=== PATIENT | male | born 1990 | race Caucasian/White ===

== ENCOUNTER 2017-06-02 12:44 | Emergency (ER) | payer MEDICAID ==
[~2017-06-02] VITALS: Ht 188 cm; Wt 72.6 kg
[2017-06-02 13:00] VITALS: BP 118/77
[2017-06-02 13:46] LABS: Basophils # (auto) 0 uL; Basophils % (auto) 0.5 % (0.0-2.0); Eosinophils # (auto) 0.2 uL; Eosinophils % (auto) 1.8 % (0.0-7.0); Hematocrit 43.4 % (41.0-53.0); Hemoglobin 14.6 g/dL (13.5-17.5); Lymphocytes # (auto) 1.8 uL; Lymphocytes % (auto) 18.8 % (10.0-50.0); Mean Corpuscular Hemoglobin 30.3 pg (28.0-32.0); Mean Corpuscular Hgb Conc. 33.6 g/dL (32.0-36.0); Mean Corpuscular Volume 90.2 fL (80.0-100.0); Mean Platelet Volume 7.3 fL (6.9-10.8); Monocytes # (auto) 0.9 uL; Monocytes % (auto) 10.1 % (0.0-12.0); Neutrophils # (auto) 6.4 uL; Neutrophils % (auto) 68.8 % (37.0-80.0); Nucleated Red Blood Cells % 0.1 %; Platelet Count (auto) 289 10^3/uL (140-450); Red Cell Distribution Width 13.9 % (11.8-14.3); White Blood Cell 9.4 10^3/uL (4.4-10.8)
[2017-06-02 13:56] LABS: Acetaminophen < 2.0 ug/mL (10-30); Salicylate < 1.7 mg/dL (2.8-20.0)
[2017-06-02 13:57] LABS: Albumin 4.5 g/dL (3.4-5.0); Alkaline Phosphatase 66 U/L (45-117); Anion Gap 6 (5-15); Aspartate Aminotransferase 19 U/L (15-37); BUN/Creatinine Ratio 12.8; Bilirubin, Total 2.1 mg/dL (0.2-1.0); Blood Urea Nitrogen 15 mg/dL (7-18); Calcium 9.1 mg/dL (8.5-10.1); Carbon Dioxide 30 mmol/L (21-32); Chloride 101 mmol/L (98-107); GFR African American 96 mL/min; GFR Non-African American 79 mL/min; Glucose 88 mg/dL (74-106); Potassium 3.9 mmol/L (3.5-5.1); Sodium 137 mmol/L (136-145); Total Protein 8.2 g/dL (6.4-8.2)
== END 2017-06-02 20:30 | disposition left against medical advice (07) ==
LOC: EDBD 12:44 → EDUNIT# 12:44 → ER 12:44
DX: F15.90 Other stimulant use, unspecified, uncomplicated (principal); Z53.21 Procedure and treatment not carried out due to patient leaving prior to being seen by health care provider
CPT/HCPCS: 36415; 80053; 80320; 80329; 85025

== ENCOUNTER 2018-05-04 22:14 | Emergency (ER) | payer MEDICAID, OTHER ==
[~2018-05-04] VITALS: Ht 188 cm; Wt 77.1 kg
[2018-05-04 22:53] LABS: Basophils # (auto) 0.1 uL; Basophils % (auto) 0.6 % (0.0-2.0); Eosinophils # (auto) 0.4 uL; Eosinophils % (auto) 4.2 % (0.0-7.0); Hematocrit 40.5 % (41.0-53.0); Hemoglobin 13.6 g/dL (13.5-17.5); Lymphocytes # (auto) 2.5 uL; Lymphocytes % (auto) 24.3 % (10.0-50.0); Mean Corpuscular Hemoglobin 31.7 pg (28.0-32.0); Mean Corpuscular Hgb Conc. 33.5 g/dL (32.0-36.0); Mean Corpuscular Volume 94.7 fL (80.0-100.0); Monocytes # (auto) 0.9 uL; Monocytes % (auto) 8.8 % (0.0-12.0); Neutrophils # (auto) 6.5 uL; Neutrophils % (auto) 62.1 % (37.0-80.0); Nucleated Red Blood Cells % 0.1 %; Platelet Count (auto) 281 10^3/uL (140-450); Red Blood Cells 4.28 10^6/uL (4.5-5.90); Red Cell Distribution Width 13.6 % (11.8-14.3); White Blood Cell 10.5 10^3/uL (4.4-10.8)
[2018-05-04 23:14] LABS: Alanine Aminotransferase 25 U/L (16-61); Albumin 3.6 g/dL (3.4-5.0); Anion Gap 6 (5-15); Aspartate Aminotransferase 17 U/L (15-37); BUN/Creatinine Ratio 17.6; Blood Urea Nitrogen 18 mg/dL (7-18); Calcium 8.1 mg/dL (8.5-10.1); Carbon Dioxide 28 mmol/L (21-32); Chloride 106 mmol/L (98-107); GFR African American 112 mL/min; GFR Non-African American 92 mL/min; Glucose 100 mg/dL (74-106); Potassium 4.2 mmol/L (3.5-5.1); Sodium 140 mmol/L (136-145)
[2018-05-04 23:18] LABS: Alkaline Phosphatase 69 U/L (45-117); Bilirubin, Total 0.3 mg/dL (0.2-1.0); Total Protein 6.7 g/dL (6.4-8.2)
[2018-05-05 00:12] LABS: Urine Bacteria NONE SEEN /hpf (None Seen); Urine Blood Negative /uL (Negative); Urine Specific Gravity 1.009 (1.001-1.035); Urine WBC 2 /hpf (0 - 3)
[2018-05-05] MEDS ORDERED: IBUPROFEN 800 MG TAB PO ONE (00:15)
[2018-05-05 01:21] VITALS: BP 97/56
== END 2018-05-05 03:11 | disposition home or self-care (01) ==
LOC: EDBD 22:14 → EEVIPCON 22:23 → ER 22:23
DX: R07.89 Other chest pain (principal); F17.210 Nicotine dependence, cigarettes, uncomplicated; F12.90 Cannabis use, unspecified, uncomplicated
CPT/HCPCS: 36415; 71045; 80053; 81001; 83880; 84484; 85025; 93005; 94761

== ENCOUNTER 2020-07-28 23:51 | Emergency (ER) | payer MEDICAID, OTHER ==
[~2020-07-28] VITALS: Ht 154.9 cm; Wt 81.6 kg
[2020-07-29 00:22] VITALS: BP 114/77
[2020-07-29] MEDS ORDERED: IBUPROFEN 800 MG TAB PO ONE (02:00)
== END 2020-07-29 03:00 | disposition home or self-care (01) ==
LOC: EDBD 23:51 → ER 23:51
DX: S29.012A Strain of muscle and tendon of back wall of thorax, initial encounter (principal); G89.29 Other chronic pain; X58.XXXA Exposure to other specified factors, initial encounter; Y93.89 Activity, other specified; Y92.89 Other specified places as the place of occurrence of the external cause; Y99.8 Other external cause status
CPT/HCPCS: 72070

== ENCOUNTER 2020-08-19 17:00 | Emergency (ER) | payer MEDICAID ==
[~2020-08-19] VITALS: Ht 188 cm; Wt 74.8 kg
[2020-08-19 17:04] VITALS: BP 119/76
[2020-08-19] MEDS ORDERED: ACETAMINOPHEN 325 MG TAB PO ONE (20:00)
== END 2020-08-19 20:45 | disposition home or self-care (01) ==
LOC: EDBD 17:00 → ER 17:00 → EDUNIT# 17:00 → ER 20:45
DX: R53.1 Weakness (principal); F12.10 Cannabis abuse, uncomplicated

== ENCOUNTER 2020-09-06 11:07 | Inpatient (IN) | payer MEDICAID, OTHER ==
[~2020-09-06] VITALS: Ht 180.3 cm; Wt 73.0 kg
[2020-09-06] VITALS (7 sets, daily range): BP systolic 89–156; BP diastolic 44–67
[2020-09-06] MEDS ORDERED: NALOXONE HCL 1MG/ML 2ML SYRINGE ONE ×2 (11:10→11:13)
[2020-09-06] MEDS: MIDAZOLAM DRIP 50 mg/50mL 50 ML IV SCH (11:11)
[2020-09-06] MEDS ORDERED: NALOXONE HCL 1MG/ML 2ML SYRINGE IV ONE (11:30)
[2020-09-06] MEDS ORDERED: SODIUM CHLORIDE 0.9% 1,000 ML IV ONE (11:30)
[2020-09-06] MEDS ORDERED: ETOMIDATE (2MG/ML) 20ML VIAL IV ONE (11:30)
[2020-09-06] MEDS ORDERED: SUCCINYLCHOLINE CHLORIDE 20 MG/ML 10ML VIAL IV ONE (11:30)
[2020-09-06] MEDS ORDERED: NOREPINEPHRINE 8 MG/250ML KIT 250 ML IV ONE (11:59)
[2020-09-06] MEDS: NOREPINEPHRINE 8 MG/250ML KIT 250 ML IV SCH (12:00)
[2020-09-06 12:14] LABS: Basophils # (auto) 0 10 ^3/uL (0-0.2); Basophils % (auto) 0.6 % (0.0-2.0); Eosinophils # (auto) 0.1 10 ^3/uL (0-0.8); Eosinophils % (auto) 1.6 % (0.0-7.0); Hematocrit 39.8 % (41.0-53.0); Hemoglobin 13.4 g/dL (13.5-17.5); Lymphocytes # (auto) 2.8 10 ^3/uL (0.4-5.4); Lymphocytes % (auto) 35.2 % (10.0-50.0); Mean Corpuscular Hemoglobin 32.2 pg (28.0-32.0); Mean Corpuscular Hgb Conc. 33.7 g/dL (32.0-36.0); Mean Corpuscular Volume 95.5 fL (80.0-100.0); Monocytes # (auto) 0.4 10 ^3/uL (0-1.3); Monocytes % (auto) 5.6 % (0.0-12.0); Neutrophils # (auto) 4.5 10 ^3/uL (1.6-8.6); Nucleated Red Blood Cells % 0.1 %; Platelet Count (auto) 310 10^3/uL (140-450); Red Blood Cells 4.17 10^6/uL (4.5-5.90); White Blood Cell 7.8 10^3/uL (4.4-10.8)
[2020-09-06 12:35] LABS: Salicylate 2.3 mg/dL (2.8-20.0)
[2020-09-06 12:36] LABS: Albumin 3.6 g/dL (3.4-5.0); Calcium 7.5 mg/dL (8.5-10.1); Magnesium 2.3 mg/dL (1.6-2.6); Potassium 3.9 mmol/L (3.5-5.1)
[2020-09-06 12:38] LABS: Lactic Acid w/Reflex 4.4 mmol/L (0.4-2.0)
[2020-09-06 12:39] LABS: Acetaminophen < 2.0 ug/mL (10-30)
[2020-09-06 12:40] LABS: BUN/Creatinine Ratio 12.5; Bilirubin, Total 0.4 mg/dL (0.2-1.0); Total Protein 7.1 g/dL (6.4-8.2)
[2020-09-06 13:01] LABS: Urine WBC None Seen /hpf (0 - 3)
[2020-09-06 13:32] LABS: Urine Bacteria FEW /hpf (None Seen); Urine Blood Negative /uL (Negative); Urine Hyaline Cast MOD /lpf (0 - 2); Urine Specific Gravity 1.008 (1.001-1.035)
[2020-09-06 13:33] LABS: Amphetamine Screen, Urine POSITIVE (NEGATIVE); Barbiturate Scree,Urine NEGATIVE (NEGATIVE); Benzodiazephine Screen, Urine NEGATIVE (NEGATIVE); Cannabinoid Screen, Urine NEGATIVE (NEGATIVE); Cocaine Screen, Urine NEGATIVE (NEGATIVE); Opiate Scree,Urine NEGATIVE (NEGATIVE); Phencyclidine Screen, Urine NEGATIVE (NEGATIVE)
[2020-09-06] MEDS ORDERED: CALCIUM GLUC 4.65meq/50ml D5AE 50 ML IV ONE (14:30)
[2020-09-06] MEDS ORDERED: NITROGLYCERIN 0.4 MG SL TAB SL PRN (14:30)
[2020-09-06] MEDS ORDERED: SODIUM CHLORIDE 0.9% 2,000 ML IV ONE (14:30)
[2020-09-06] MEDS ORDERED: MORPHINE SULF INJ 2 MG/ML SYRINGE 1ML IV PRN (14:30)
[2020-09-06] MEDS ORDERED: DEXTROSE (50%) 50ML SYRG IV PRN (14:30)
[2020-09-06] MEDS: SODIUM CHLORIDE 0.9% 1,000 ML IV SCH (16:30)
[2020-09-06] MEDS: InsuLIN REG 1unit/0.01ml Soln (100units/ml) SC SCH (19:13)
[2020-09-06] MEDS: ACCU-CHEK COMFORT CURVE STRIP VI SCH (19:13)
[2020-09-07] VITALS (77 sets, daily range): BP systolic 93–117; BP diastolic 54–69
[2020-09-07] MEDS: ACCU-CHEK COMFORT CURVE STRIP VI SCH ×5 (00:27→23:57)
[2020-09-07] MEDS: SODIUM CHLORIDE 0.9% 1,000 ML IV SCH ×3 (00:28→20:30)
[2020-09-07] MEDS ORDERED: PROPOFOL 100 ML IV ONE (00:49)
[2020-09-07] MEDS: PROPOFOL 100 ML IV SCH ×2 (00:56→08:53)
[2020-09-07] MEDS: InsuLIN REG 1unit/0.01ml Soln (100units/ml) SC SCH ×5 (05:14→23:56)
[2020-09-07] MEDS ORDERED: VANCOMYCIN 1GM/250ML 250 ML IV ONE (10:00)
[2020-09-07] MEDS ORDERED: VANCOMYCIN PER PHARMACY 0 MG IV SCH (10:00)
[2020-09-07] MEDS: PANTOPRAZOLE 40 MG/10 ML VIAL INJ IV SCH (10:27)
[2020-09-07] MEDS: ENOXAPARIN SOD 40 MG/0.4 ML SYRINGE SC SCH (10:27)
[2020-09-07] MEDS: MIDAZOLAM DRIP 50 mg/50mL 50 ML IV SCH ×2 (11:30→18:49)
[2020-09-07] MEDS: FOLIC ACID 1 MG in D5W 5% 50 ML INJ SCH (11:30)
[2020-09-07 11:38] LABS: Basophils # (auto) 0.1 10 ^3/uL (0-0.2); Basophils % (auto) 0.7 % (0.0-2.0); Eosinophils # (auto) 0.4 10 ^3/uL (0-0.8); Eosinophils % (auto) 3.7 % (0.0-7.0); Hematocrit 34.8 % (41.0-53.0); Hemoglobin 11.6 g/dL (13.5-17.5); Lymphocytes # (auto) 1.6 10 ^3/uL (0.4-5.4); Lymphocytes % (auto) 15.6 % (10.0-50.0); Mean Corpuscular Hemoglobin 31.9 pg (28.0-32.0); Mean Corpuscular Hgb Conc. 33.4 g/dL (32.0-36.0); Mean Corpuscular Volume 95.6 fL (80.0-100.0); Monocytes # (auto) 0.5 10 ^3/uL (0-1.3); Monocytes % (auto) 5.3 % (0.0-12.0); Neutrophils # (auto) 7.6 10 ^3/uL (1.6-8.6); Neutrophils % (auto) 74.7 % (37.0-80.0); Platelet Count (auto) 234 10^3/uL (140-450); Red Blood Cells 3.64 10^6/uL (4.5-5.90); Red Cell Distribution Width 14.5 % (11.8-14.3); White Blood Cell 10.2 10^3/uL (4.4-10.8)
[2020-09-07 11:53] LABS: INR 0.99 (0.9-1.15)
[2020-09-07 12:06] LABS: Alanine Aminotransferase 42 U/L (16-61); Albumin 2.7 g/dL (3.4-5.0); Alkaline Phosphatase 69 U/L (45-117); Anion Gap 7 (5-15); Aspartate Aminotransferase 46 U/L (15-37); BUN/Creatinine Ratio 14.5; Bilirubin, Total 0.9 mg/dL (0.2-1.0); Blood Alcohol < 3.0 mg/dL (0-5); Blood Urea Nitrogen 11 mg/dL (7-18); Calcium 7.5 mg/dL (8.5-10.1); Carbon Dioxide 24 mmol/L (21-32); Chloride 111 mmol/L (98-107); GFR African American 155 mL/min; GFR Non-African American 128 mL/min; Glucose 72 mg/dL (74-106); Potassium 3.7 mmol/L (3.5-5.1); Sodium 142 mmol/L (136-145); Total Protein 5.5 g/dL (6.4-8.2)
[2020-09-07] MEDS: PIPERACILLIN-TAZOB 3.375GM 100 ML IV SCH ×2 (12:27→18:00)
[2020-09-07] MEDS: NOREPINEPHRINE 8 MG/250ML KIT 250 ML IV SCH (12:45)
[2020-09-07] MEDS: metroNIDAZOLE 500MG/100ML 100 ML IV SCH ×2 (14:00→21:46)
[2020-09-07] MEDS: VANCOMYCIN 1GM/250ML 250 ML IV SCH (17:07)
[2020-09-08] VITALS (106 sets, daily range): BP systolic 93–146; BP diastolic 54–98
[2020-09-08] MEDS: VANCOMYCIN 1GM/250ML 250 ML IV SCH ×3 (01:00→17:20)
[2020-09-08 04:03] LABS: Basophils # (auto) 0 10 ^3/uL (0-0.2); Basophils % (auto) 0.3 % (0.0-2.0); Eosinophils # (auto) 0.6 10 ^3/uL (0-0.8); Eosinophils % (auto) 6.9 % (0.0-7.0); Hemoglobin 12.8 g/dL (13.5-17.5); Lymphocytes % (auto) 11.9 % (10.0-50.0); Mean Corpuscular Hemoglobin 32.8 pg (28.0-32.0); Mean Corpuscular Hgb Conc. 34.5 g/dL (32.0-36.0); Mean Corpuscular Volume 95.1 fL (80.0-100.0); Monocytes # (auto) 0.5 10 ^3/uL (0-1.3); Monocytes % (auto) 6.7 % (0.0-12.0); Neutrophils % (auto) 74.2 % (37.0-80.0); Nucleated Red Blood Cells % 0.1 %; Platelet Count (auto) 206 10^3/uL (140-450); Red Blood Cells 3.89 10^6/uL (4.5-5.90); Red Cell Distribution Width 14.4 % (11.8-14.3); White Blood Cell 8.1 10^3/uL (4.4-10.8)
[2020-09-08 04:16] LABS: Albumin 2.6 g/dL (3.4-5.0); Calcium 7.7 mg/dL (8.5-10.1); Potassium 3.7 mmol/L (3.5-5.1)
[2020-09-08 04:21] LABS: BUN/Creatinine Ratio 11.1; Bilirubin, Total 0.9 mg/dL (0.2-1.0); Total Protein 5.9 g/dL (6.4-8.2)
[2020-09-08] MEDS: SODIUM CHLORIDE 0.9% 1,000 ML IV SCH ×2 (05:00→17:20)
[2020-09-08] MEDS: ACCU-CHEK COMFORT CURVE STRIP VI SCH ×3 (05:07→17:22)
[2020-09-08] MEDS: InsuLIN REG 1unit/0.01ml Soln (100units/ml) SC SCH ×3 (05:07→17:22)
[2020-09-08] MEDS: PIPERACILLIN-TAZOB 3.375GM 100 ML IV SCH ×4 (06:00→18:09)
[2020-09-08] MEDS: metroNIDAZOLE 500MG/100ML 100 ML IV SCH ×3 (06:00→23:10)
[2020-09-08] MEDS: PANTOPRAZOLE 40 MG/10 ML VIAL INJ IV SCH (09:17)
[2020-09-08] MEDS: ENOXAPARIN SOD 40 MG/0.4 ML SYRINGE SC SCH (09:17)
[2020-09-08] MEDS ORDERED: Jevity 1.2 Cal/Fiber 1 Liter GT SCH (10:30)
[2020-09-08] MEDS: MIDAZOLAM DRIP 50 mg/50mL 50 ML IV SCH ×2 (10:34→18:10)
[2020-09-08] MEDS: FOLIC ACID 1 MG in D5W 5% 50 ML INJ SCH (11:03)
[2020-09-08] MEDS: PROPOFOL 100 ML IV SCH (11:06)
[2020-09-08] MEDS: NOREPINEPHRINE 8 MG/250ML KIT 250 ML IV SCH (12:45)
[2020-09-09] VITALS (98 sets, daily range): BP systolic 86–137; BP diastolic 45–97
[2020-09-09] MEDS: PROPOFOL 100 ML IV SCH ×2 (00:58→09:19)
[2020-09-09] MEDS: ACCU-CHEK COMFORT CURVE STRIP VI SCH ×4 (01:00→18:04)
[2020-09-09] MEDS: PIPERACILLIN-TAZOB 3.375GM 100 ML IV SCH ×4 (01:00→18:30)
[2020-09-09] MEDS: VANCOMYCIN 1GM/250ML 250 ML IV SCH ×2 (01:01→10:22)
[2020-09-09] MEDS: InsuLIN REG 1unit/0.01ml Soln (100units/ml) SC SCH ×4 (01:20→18:00)
[2020-09-09 04:11] LABS: Basophils # (auto) 0 10 ^3/uL (0-0.2); Basophils % (auto) 0.2 % (0.0-2.0); Eosinophils # (auto) 0.3 10 ^3/uL (0-0.8); Eosinophils % (auto) 4.3 % (0.0-7.0); Hematocrit 35.3 % (41.0-53.0); Hemoglobin 12.3 g/dL (13.5-17.5); Lymphocytes # (auto) 0.8 10 ^3/uL (0.4-5.4); Lymphocytes % (auto) 10.1 % (10.0-50.0); Mean Corpuscular Hemoglobin 33.1 pg (28.0-32.0); Mean Corpuscular Hgb Conc. 34.8 g/dL (32.0-36.0); Mean Corpuscular Volume 95.3 fL (80.0-100.0); Monocytes # (auto) 0.5 10 ^3/uL (0-1.3); Monocytes % (auto) 6.7 % (0.0-12.0); Neutrophils # (auto) 6.1 10 ^3/uL (1.6-8.6); Neutrophils % (auto) 78.7 % (37.0-80.0); Platelet Count (auto) 201 10^3/uL (140-450); Red Cell Distribution Width 14.3 % (11.8-14.3); White Blood Cell 7.7 10^3/uL (4.4-10.8)
[2020-09-09 04:24] LABS: Albumin 2.5 g/dL (3.4-5.0); Calcium 7.8 mg/dL (8.5-10.1); Potassium 3.9 mmol/L (3.5-5.1)
[2020-09-09 04:29] LABS: BUN/Creatinine Ratio 6.9; Bilirubin, Total 0.5 mg/dL (0.2-1.0); Total Protein 5.9 g/dL (6.4-8.2)
[2020-09-09] MEDS: SODIUM CHLORIDE 0.9% 1,000 ML IV SCH ×2 (06:43→12:30)
[2020-09-09] MEDS: metroNIDAZOLE 500MG/100ML 100 ML IV SCH (06:43)
[2020-09-09] MEDS: MIDAZOLAM DRIP 50 mg/50mL 50 ML IV SCH (09:19)
[2020-09-09] MEDS: PANTOPRAZOLE 40 MG/10 ML VIAL INJ IV SCH (10:22)
[2020-09-09] MEDS: FOLIC ACID 1 MG in D5W 5% 50 ML INJ SCH (10:22)
[2020-09-09] MEDS: ENOXAPARIN SOD 40 MG/0.4 ML SYRINGE SC SCH (10:22)
[2020-09-09] MEDS: NOREPINEPHRINE 8 MG/250ML KIT 250 ML IV SCH (12:45)
[2020-09-10] VITALS (87 sets, daily range): BP systolic 97–166; BP diastolic 60–112
[2020-09-10] MEDS: SODIUM CHLORIDE 0.9% 1,000 ML IV SCH ×3 (00:36→18:51)
[2020-09-10] MEDS: PIPERACILLIN-TAZOB 3.375GM 100 ML IV SCH ×2 (00:37→06:16)
[2020-09-10] MEDS: ACCU-CHEK COMFORT CURVE STRIP VI SCH ×4 (00:37→18:00)
[2020-09-10] MEDS: InsuLIN REG 1unit/0.01ml Soln (100units/ml) SC SCH ×4 (00:38→18:00)
[2020-09-10 05:48] LABS: Basophils # (auto) 0 10 ^3/uL (0-0.2); Basophils % (auto) 0.1 % (0.0-2.0); Eosinophils # (auto) 0.3 10 ^3/uL (0-0.8); Eosinophils % (auto) 2.7 % (0.0-7.0); Hematocrit 37.1 % (41.0-53.0); Hemoglobin 12.6 g/dL (13.5-17.5); Lymphocytes % (auto) 10.6 % (10.0-50.0); Mean Corpuscular Hemoglobin 32.5 pg (28.0-32.0); Mean Corpuscular Hgb Conc. 34.1 g/dL (32.0-36.0); Mean Corpuscular Volume 95.2 fL (80.0-100.0); Monocytes # (auto) 0.7 10 ^3/uL (0-1.3); Neutrophils # (auto) 7.7 10 ^3/uL (1.6-8.6); Neutrophils % (auto) 79.6 % (37.0-80.0); Platelet Count (auto) 243 10^3/uL (140-450); Red Blood Cells 3.89 10^6/uL (4.5-5.90); Red Cell Distribution Width 14.5 % (11.8-14.3); White Blood Cell 9.7 10^3/uL (4.4-10.8)
[2020-09-10 06:19] LABS: Calcium 7.7 mg/dL (8.5-10.1); Potassium 3.9 mmol/L (3.5-5.1)
[2020-09-10 06:24] LABS: Albumin 2.4 g/dL (3.4-5.0); BUN/Creatinine Ratio 5.3; Bilirubin, Total 0.2 mg/dL (0.2-1.0); Total Protein 6.1 g/dL (6.4-8.2)
[2020-09-10] MEDS: FOLIC ACID 1 MG in D5W 5% 50 ML INJ SCH (11:13)
[2020-09-10] MEDS: PANTOPRAZOLE 40 MG/10 ML VIAL INJ IV SCH (11:13)
[2020-09-10] MEDS: ENOXAPARIN SOD 40 MG/0.4 ML SYRINGE SC SCH (11:14)
[2020-09-10] MEDS: MIDAZOLAM DRIP 50 mg/50mL 50 ML IV SCH (11:30)
[2020-09-10] MEDS: NOREPINEPHRINE 8 MG/250ML KIT 250 ML IV SCH (12:45)
[2020-09-10] MEDS: PROPOFOL 100 ML IV SCH (22:31)
[2020-09-11] VITALS (59 sets, daily range): BP systolic 97–179; BP diastolic 58–102
[2020-09-11] MEDS: ACCU-CHEK COMFORT CURVE STRIP VI SCH ×4 (01:00→17:42)
[2020-09-11] MEDS: InsuLIN REG 1unit/0.01ml Soln (100units/ml) SC SCH ×4 (01:00→17:42)
[2020-09-11] MEDS: PROPOFOL 100 ML IV SCH ×2 (01:30→06:36)
[2020-09-11] MEDS: SODIUM CHLORIDE 0.9% 1,000 ML IV SCH ×2 (02:37→14:30)
[2020-09-11] MEDS: MIDAZOLAM DRIP 50 mg/50mL 50 ML IV SCH (02:37)
[2020-09-11 04:20] LABS: Basophils # (auto) 0 10 ^3/uL (0-0.2); Basophils % (auto) 0.2 % (0.0-2.0); Eosinophils # (auto) 0.4 10 ^3/uL (0-0.8); Eosinophils % (auto) 4.2 % (0.0-7.0); Hematocrit 35.2 % (41.0-53.0); Hemoglobin 11.8 g/dL (13.5-17.5); Lymphocytes # (auto) 1.4 10 ^3/uL (0.4-5.4); Lymphocytes % (auto) 14.7 % (10.0-50.0); Mean Corpuscular Hgb Conc. 33.5 g/dL (32.0-36.0); Mean Corpuscular Volume 95.4 fL (80.0-100.0); Monocytes % (auto) 10.4 % (0.0-12.0); Neutrophils # (auto) 6.7 10 ^3/uL (1.6-8.6); Neutrophils % (auto) 70.5 % (37.0-80.0); Nucleated Red Blood Cells % 0.1 %; Platelet Count (auto) 230 10^3/uL (140-450); Red Blood Cells 3.69 10^6/uL (4.5-5.90); Red Cell Distribution Width 14.4 % (11.8-14.3); White Blood Cell 9.6 10^3/uL (4.4-10.8)
[2020-09-11 04:39] LABS: BUN/Creatinine Ratio 7.8; Potassium 3.6 mmol/L (3.5-5.1)
[2020-09-11] MEDS: ENOXAPARIN SOD 40 MG/0.4 ML SYRINGE SC SCH (09:52)
[2020-09-11] MEDS: PANTOPRAZOLE 40 MG/10 ML VIAL INJ IV SCH (09:52)
[2020-09-11] MEDS: FOLIC ACID 1 MG in D5W 5% 50 ML INJ SCH (09:54)
[2020-09-11] MEDS: diphenhdrAMINE HCL 50 MG/1 ML VL IV PRN ×3 (11:30→22:04)
[2020-09-11] MEDS: NOREPINEPHRINE 8 MG/250ML KIT 250 ML IV SCH (12:45)
[2020-09-12] VITALS (7 sets, daily range): BP systolic 136–153; BP diastolic 80–97
[2020-09-12] MEDS: ACCU-CHEK COMFORT CURVE STRIP VI SCH ×5 (00:21→23:53)
[2020-09-12] MEDS: diphenhdrAMINE HCL 50 MG/1 ML VL IV PRN ×2 (03:09→18:05)
[2020-09-12] MEDS: SODIUM CHLORIDE 0.9% 1,000 ML IV SCH ×3 (05:25→21:40)
[2020-09-12] MEDS: InsuLIN REG 1unit/0.01ml Soln (100units/ml) SC SCH ×5 (05:52→23:53)
[2020-09-12 08:37] LABS: Basophils # (auto) 0 10 ^3/uL (0-0.2); Basophils % (auto) 0.2 % (0.0-2.0); Eosinophils # (auto) 0.1 10 ^3/uL (0-0.8); Eosinophils % (auto) 1.2 % (0.0-7.0); Hematocrit 35.5 % (41.0-53.0); Hemoglobin 12.3 g/dL (13.5-17.5); Lymphocytes # (auto) 1.5 10 ^3/uL (0.4-5.4); Lymphocytes % (auto) 15.2 % (10.0-50.0); Mean Corpuscular Hemoglobin 32.3 pg (28.0-32.0); Mean Corpuscular Hgb Conc. 34.6 g/dL (32.0-36.0); Mean Corpuscular Volume 93.2 fL (80.0-100.0); Monocytes % (auto) 10.1 % (0.0-12.0); Neutrophils # (auto) 7.1 10 ^3/uL (1.6-8.6); Neutrophils % (auto) 73.3 % (37.0-80.0); Platelet Count (auto) 258 10^3/uL (140-450); Red Blood Cells 3.81 10^6/uL (4.5-5.90); Red Cell Distribution Width 14.1 % (11.8-14.3); White Blood Cell 9.7 10^3/uL (4.4-10.8)
[2020-09-12 09:00] LABS: BUN/Creatinine Ratio 7.1; Calcium 6.7 mg/dL (8.5-10.1)
[2020-09-12 09:06] LABS: Potassium 2.6 mmol/L (3.5-5.1)
[2020-09-12] MEDS ORDERED: POTASSIUM CHL 20 Meq TABLET PO ONE (09:30)
[2020-09-12] MEDS ORDERED: ceFAZolin 1GM/50ML 50 ML IV ONE (10:00)
[2020-09-12] MEDS: PANTOPRAZOLE 40 MG/10 ML VIAL INJ IV SCH (10:09)
[2020-09-12] MEDS: ENOXAPARIN SOD 40 MG/0.4 ML SYRINGE SC SCH (10:09)
[2020-09-12] MEDS ORDERED: POTASSIUM EFFERVESENT TAB 25 MEQ PO ONE (10:45)
[2020-09-12] MEDS: FOLIC ACID 1 MG in D5W 5% 50 ML INJ SCH (11:49)
[2020-09-12] MEDS ORDERED: LORazepam 2MG/ML-1ML VIAL IV ONE (18:00)
[2020-09-12] MEDS ORDERED: INSULIN LISPRO (HUMAN) 100 UNITS/ML ML SC ONE (18:46)
[2020-09-12] MEDS: ceFAZolin 1GM/50ML 50 ML IV SCH (18:54)
[2020-09-13] MEDS: ceFAZolin 1GM/50ML 50 ML IV SCH ×3 (01:36→17:16)
[2020-09-13] MEDS: chlordiazePOXIDE HCL 5 MG CAP PO PRN ×2 (02:09→21:17)
[2020-09-13] MEDS: SODIUM CHLORIDE 0.9% 1,000 ML IV SCH ×2 (05:56→17:04)
[2020-09-13] MEDS: ACCU-CHEK COMFORT CURVE STRIP VI SCH ×3 (05:56→17:16)
[2020-09-13] MEDS: InsuLIN REG 1unit/0.01ml Soln (100units/ml) SC SCH ×3 (05:57→17:15)
[2020-09-13 06:39] LABS: Basophils # (auto) 0 10 ^3/uL (0-0.2); Basophils % (auto) 0.2 % (0.0-2.0); Eosinophils # (auto) 0.3 10 ^3/uL (0-0.8); Eosinophils % (auto) 3.5 % (0.0-7.0); Hematocrit 39.2 % (41.0-53.0); Hemoglobin 13.9 g/dL (13.5-17.5); Lymphocytes # (auto) 1.9 10 ^3/uL (0.4-5.4); Lymphocytes % (auto) 20.7 % (10.0-50.0); Mean Corpuscular Hemoglobin 32.5 pg (28.0-32.0); Mean Corpuscular Hgb Conc. 35.4 g/dL (32.0-36.0); Mean Corpuscular Volume 91.9 fL (80.0-100.0); Monocytes # (auto) 1.1 10 ^3/uL (0-1.3); Monocytes % (auto) 11.7 % (0.0-12.0); Neutrophils # (auto) 5.9 10 ^3/uL (1.6-8.6); Neutrophils % (auto) 63.9 % (37.0-80.0); Nucleated Red Blood Cells % 0.1 %; Platelet Count (auto) 338 10^3/uL (140-450); Red Blood Cells 4.27 10^6/uL (4.5-5.90); Red Cell Distribution Width 14.4 % (11.8-14.3); White Blood Cell 9.2 10^3/uL (4.4-10.8)
[2020-09-13 06:46] LABS: Calcium 8.7 mg/dL (8.5-10.1); Potassium 3.7 mmol/L (3.5-5.1)
[2020-09-13 06:48] LABS: BUN/Creatinine Ratio 13.3
[2020-09-13 09:00] VITALS: BP 140/85
[2020-09-13] MEDS: PANTOPRAZOLE 40 MG/10 ML VIAL INJ IV SCH (09:48)
[2020-09-13] MEDS: ENOXAPARIN SOD 40 MG/0.4 ML SYRINGE SC SCH (09:52)
[2020-09-13] MEDS: Ensure Pudding Vanilla 4 oz Cup PO SCH ×2 (12:06→17:15)
[2020-09-13] MEDS: FOLIC ACID 1 MG in D5W 5% 50 ML INJ SCH (12:53)
[2020-09-13 13:00] VITALS: BP 143/94
[2020-09-13 16:37] VITALS: BP 146/96
[2020-09-13 22:00] VITALS: BP 143/93
[2020-09-14] MEDS: ACCU-CHEK COMFORT CURVE STRIP VI SCH ×4 (00:18→17:22)
[2020-09-14] MEDS: diphenhdrAMINE HCL 50 MG/1 ML VL IV PRN ×2 (00:34→12:30)
[2020-09-14] MEDS: ceFAZolin 1GM/50ML 50 ML IV SCH ×3 (02:11→17:22)
[2020-09-14] MEDS: SODIUM CHLORIDE 0.9% 1,000 ML IV SCH ×3 (02:12→22:40)
[2020-09-14 05:00] VITALS: BP 146/97
[2020-09-14] MEDS: InsuLIN REG 1unit/0.01ml Soln (100units/ml) SC SCH ×4 (06:00→17:23)
[2020-09-14 06:18] LABS: Eosinophils # (auto) 0.5 10 ^3/uL (0-0.8); Monocytes # (auto) 1.4 10 ^3/uL (0-1.3)
[2020-09-14 06:21] LABS: Basophils # (auto) 0 10 ^3/uL (0-0.2); Basophils % (auto) 0.3 % (0.0-2.0); Eosinophils % (auto) 4.6 % (0.0-7.0); Hematocrit 38.3 % (41.0-53.0); Hemoglobin 13.7 g/dL (13.5-17.5); Lymphocytes # (auto) 1.9 10 ^3/uL (0.4-5.4); Lymphocytes % (auto) 18.3 % (10.0-50.0); Mean Corpuscular Hemoglobin 32.3 pg (28.0-32.0); Mean Corpuscular Hgb Conc. 35.7 g/dL (32.0-36.0); Mean Corpuscular Volume 90.5 fL (80.0-100.0); Monocytes % (auto) 13.1 % (0.0-12.0); Neutrophils # (auto) 6.7 10 ^3/uL (1.6-8.6); Neutrophils % (auto) 63.7 % (37.0-80.0); Platelet Count (auto) 462 10^3/uL (140-450); Red Blood Cells 4.23 10^6/uL (4.5-5.90); White Blood Cell 10.4 10^3/uL (4.4-10.8)
[2020-09-14 06:24] LABS: Potassium 3.4 mmol/L (3.5-5.1)
[2020-09-14 06:28] LABS: Albumin 3.1 g/dL (3.4-5.0); BUN/Creatinine Ratio 14.3; Calcium 8.9 mg/dL (8.5-10.1)
[2020-09-14 06:37] LABS: Bilirubin, Total 0.3 mg/dL (0.2-1.0); Total Protein 7.2 g/dL (6.4-8.2)
[2020-09-14] MEDS: Ensure Pudding Vanilla 4 oz Cup PO SCH ×3 (08:00→18:00)
[2020-09-14 08:37] VITALS: BP 133/84
[2020-09-14] MEDS: PANTOPRAZOLE 40 MG/10 ML VIAL INJ IV SCH (11:58)
[2020-09-14] MEDS: ENOXAPARIN SOD 40 MG/0.4 ML SYRINGE SC SCH ×2 (11:58→12:10)
[2020-09-14 13:48] VITALS: BP 143/80
[2020-09-14] MEDS ORDERED: POTASSIUM EFFERVESENT TAB 25 MEQ PO ONE (15:15)
[2020-09-14] MEDS: FOLIC ACID 1 MG in D5W 5% 50 ML INJ SCH (15:38)
[2020-09-14 17:21] VITALS: BP 145/87
[2020-09-14] MEDS: HYDROcodone-ACET 5/325MG TAB PO PRN (20:55)
[2020-09-14 21:35] VITALS: BP 158/96
[2020-09-15] MEDS: ACCU-CHEK COMFORT CURVE STRIP VI SCH ×3 (00:17→12:26)
[2020-09-15] MEDS: ceFAZolin 1GM/50ML 50 ML IV SCH ×3 (02:30→17:28)
[2020-09-15] MEDS: HYDROcodone-ACET 5/325MG TAB PO PRN ×3 (03:27→17:54)
[2020-09-15 04:43] VITALS: BP 142/85
[2020-09-15] MEDS: InsuLIN REG 1unit/0.01ml Soln (100units/ml) SC SCH ×3 (05:35→12:00)
[2020-09-15 07:10] LABS: Calcium 9.2 mg/dL (8.5-10.1); Potassium 3.9 mmol/L (3.5-5.1)
[2020-09-15 07:12] LABS: BUN/Creatinine Ratio 17.4
[2020-09-15 07:47] LABS: Basophils # (auto) 0.1 10 ^3/uL (0-0.2)
[2020-09-15 07:48] LABS: Basophils % (auto) 0.5 % (0.0-2.0); Eosinophils # (auto) 0.3 10 ^3/uL (0-0.8); Eosinophils % (auto) 3.5 % (0.0-7.0); Hematocrit 37.5 % (41.0-53.0); Lymphocytes % (auto) 21.2 % (10.0-50.0); Mean Corpuscular Hemoglobin 31.8 pg (28.0-32.0); Mean Corpuscular Hgb Conc. 34.6 g/dL (32.0-36.0); Monocytes # (auto) 1.3 10 ^3/uL (0-1.3); Monocytes % (auto) 14.4 % (0.0-12.0); Neutrophils # (auto) 5.6 10 ^3/uL (1.6-8.6); Neutrophils % (auto) 60.4 % (37.0-80.0); Red Blood Cells 4.08 10^6/uL (4.5-5.90); Red Cell Distribution Width 14.4 % (11.8-14.3); White Blood Cell 9.3 10^3/uL (4.4-10.8)
[2020-09-15] MEDS: Ensure Pudding Vanilla 4 oz Cup PO SCH ×3 (08:00→17:55)
[2020-09-15 08:07] LABS: Platelet Count (auto) 538 10^3/uL (140-450)
[2020-09-15 09:00] VITALS: BP 143/93
[2020-09-15] MEDS: FOLIC ACID 1 MG in D5W 5% 50 ML INJ SCH (10:00)
[2020-09-15] MEDS: PANTOPRAZOLE 40 MG/10 ML VIAL INJ IV SCH (10:10)
[2020-09-15] MEDS: ENOXAPARIN SOD 40 MG/0.4 ML SYRINGE SC SCH (10:10)
[2020-09-15] MEDS: SODIUM CHLORIDE 0.9% 1,000 ML IV SCH ×2 (10:10→17:55)
[2020-09-15 12:49] VITALS: BP 142/93
[2020-09-15 17:16] VITALS: BP 144/93
[2020-09-15 21:39] VITALS: BP 135/64
[2020-09-15] MEDS: risperiDONE 1 MG TAB PO SCH (22:10)
[2020-09-16] MEDS: ceFAZolin 1GM/50ML 50 ML IV SCH ×3 (02:26→18:02)
[2020-09-16] MEDS: SODIUM CHLORIDE 0.9% 1,000 ML IV SCH ×2 (04:57→13:49)
[2020-09-16 05:28] LABS: Basophils # (auto) 0 10 ^3/uL (0-0.2); Basophils % (auto) 0.5 % (0.0-2.0); Eosinophils # (auto) 0.6 10 ^3/uL (0-0.8); Eosinophils % (auto) 6.5 % (0.0-7.0); Hematocrit 37.2 % (41.0-53.0); Hemoglobin 12.8 g/dL (13.5-17.5); Lymphocytes # (auto) 2.2 10 ^3/uL (0.4-5.4); Lymphocytes % (auto) 24.6 % (10.0-50.0); Mean Corpuscular Hemoglobin 31.8 pg (28.0-32.0); Mean Corpuscular Hgb Conc. 34.4 g/dL (32.0-36.0); Mean Corpuscular Volume 92.7 fL (80.0-100.0); Monocytes # (auto) 1.1 10 ^3/uL (0-1.3); Monocytes % (auto) 12.3 % (0.0-12.0); Neutrophils # (auto) 5.1 10 ^3/uL (1.6-8.6); Neutrophils % (auto) 56.1 % (37.0-80.0); Platelet Count (auto) 535 10^3/uL (140-450); Red Blood Cells 4.01 10^6/uL (4.5-5.90); Red Cell Distribution Width 14.6 % (11.8-14.3); White Blood Cell 9.1 10^3/uL (4.4-10.8)
[2020-09-16 05:38] VITALS: BP 133/64
[2020-09-16 05:54] LABS: Albumin 2.8 g/dL (3.4-5.0); Calcium 8.7 mg/dL (8.5-10.1); Potassium 3.9 mmol/L (3.5-5.1)
[2020-09-16 05:58] LABS: Bilirubin, Total 0.2 mg/dL (0.2-1.0); Total Protein 6.3 g/dL (6.4-8.2)
[2020-09-16] MEDS: HYDROcodone-ACET 5/325MG TAB PO PRN (08:53)
[2020-09-16] MEDS: Ensure Pudding Vanilla 4 oz Cup PO SCH ×3 (08:54→18:02)
[2020-09-16 09:05] VITALS: BP 138/82
[2020-09-16] MEDS: FOLIC ACID 1 MG in D5W 5% 50 ML INJ SCH (09:36)
[2020-09-16] MEDS: ENOXAPARIN SOD 40 MG/0.4 ML SYRINGE SC SCH (09:37)
[2020-09-16] MEDS: risperiDONE 1 MG TAB PO SCH (09:37)
[2020-09-16] MEDS: PANTOPRAZOLE 40 MG/10 ML VIAL INJ IV SCH (09:37)
[2020-09-16 14:33] VITALS: BP 155/82
[2020-09-16 16:17] VITALS: BP 138/82
[2020-09-16 17:03] VITALS: BP 120/65
== END 2020-09-16 18:42 | DRG 720 ==
LOC: EDBD 11:07 → ER 11:07 → OVERFLOW 11:08 → TELE 11:08 → ICU WEST 11:08 → UNDOADMIN 11:08 → EDUNIT# 11:08 → ICU WEST 09-07 06:10 → TELE-WESTW 09-12 00:57
PROVIDERS: ADMIT Family Medicine; ATTEND Internal Medicine
PROC: 5A1955Z Respiratory Ventilation, Greater than 96 Consecutive Hours (ICD-10-PCS; principal; 2020-09-06)
PROC: 0BH17EZ Insertion of Endotracheal Airway into Trachea, Via Natural or Artificial Opening (ICD-10-PCS; 2020-09-06)
PROC: 02HV33Z Insertion of Infusion Device into Superior Vena Cava, Percutaneous Approach (ICD-10-PCS; 2020-09-06)
PROC: 4A143B0 Monitoring of Venous Pressure, Central, Percutaneous Approach (ICD-10-PCS; 2020-09-06)
DX: A41.9 Sepsis, unspecified organism (principal); J96.01 Acute respiratory failure with hypoxia; J69.0 Pneumonitis due to inhalation of food and vomit; R65.21 Severe sepsis with septic shock; G93.41 Metabolic encephalopathy; T43.621A Poisoning by amphetamines, accidental (unintentional), initial encounter; D63.8 Anemia in other chronic diseases classified elsewhere; E83.51 Hypocalcemia; L30.9 Dermatitis, unspecified; E11.65 Type 2 diabetes mellitus with hyperglycemia; K76.0 Fatty (change of) liver, not elsewhere classified; Z20.822 Contact with and (suspected) exposure to COVID-19; F17.210 Nicotine dependence, cigarettes, uncomplicated; F10.239 Alcohol dependence with withdrawal, unspecified; Y90.7 Blood alcohol level of 200-239 mg/100 ml; N39.0 Urinary tract infection, site not specified; Y92.89 Other specified places as the place of occurrence of the external cause; R44.3 Hallucinations, unspecified; F15.129 Other stimulant abuse with intoxication, unspecified; T51.0X1A Toxic effect of ethanol, accidental (unintentional), initial encounter
CPT/HCPCS: 31500; 36415; 36556; 36600; 51702; 70450; 71045; 71250; 80048; 80053; 80202; 80307; 80320; 80329; 81001; 82805; 82962; 83036; 83605; 83735; 84443; 84484; 85025; 85610; 87040; 87070; 87077; 87081; 87086; 87186; 87205; 87426; 92610; 93005; 94002; 94003; 96361; 96374; 97110; 97116; 97530; 99291; A4565; C9113; G0378; J0610; J0690; J1815; J2250; J2543; J2704; J3490; J7060